=== PATIENT | female | born 1990 | race Caucasian/White ===

== ENCOUNTER 2019-05-11 17:59 | Emergency (ER) | payer OTHER ==
[~2019-05-11] VITALS: Ht 162.6 cm; Wt 62.6 kg
[2019-05-11 18:27] VITALS: Ht 162.6 cm; Wt 62.6 kg
[2019-05-11 18:55] VITALS: BP 118/74
== END 2019-05-11 18:55 | disposition home or self-care (01) ==
LOC: ED 17:59
DX: J02.9 Acute pharyngitis, unspecified (principal); K13.0 Diseases of lips